=== PATIENT | female | born 1950 | race Caucasian/White ===

== ENCOUNTER 2018-06-27 09:19 | Day surgery (SDC) | payer MEDICARE, OTHER ==
[~2018-06-27 09:19] MED LIST: 0.9 % SODIUM CHLORIDE 10 ML VIAL IVP ONE; CEFAZOLIN 2 Gram 2 GM/50 ML BAG IVPB ONE; CELECOXIB 100 MG CAPSULE PO ONE; FAMOTIDINE 20MG TABLET PO ONE; MECLIZINE 25 MG TABLET PO ONE; METOCLOPRAMIDE 10 MG TABLET PO ONE; TRANEXAMIC ACID 1,000 MG/10 ML ML IV ONE; VANCOMYCIN HCL 1,000 MG in DEXTROSE 5 % IN WATER 250 ML IVPB ONE
[2018-06-27] MEDS ORDERED: TRANEXAMIC ACID 1,000 MG/10 ML ML IV ONE (09:20)
[2018-06-27] MEDS ORDERED: FENTANYL PF 100MCG/2ML VIAL IV ONE (09:20)
[2018-06-27] MEDS ORDERED: DEXAMETHASONE 4 MG/ML 1ML VIAL IVP ONE (09:20)
[2018-06-27] MEDS ORDERED: SEVOFLURANE 250 ML INH ONE (09:20)
[2018-06-27] MEDS ORDERED: MIDAZOLAM HCL 2MG/2ML VIAL IV ONE (09:20)
[2018-06-27] MEDS ORDERED: LIDOCAINE 2% MDV (20MG/ML) 20ML VIAL IV ONE (09:20)
[2018-06-27] MEDS ORDERED: FENTANYL PF 0.25MG/5ML AMPUL IV ONE (09:20)
[2018-06-27] MEDS ORDERED: ROPIVACAINE HCL (NAROPIN) /PF 5MG/ML 20ML VIAL IV ONE (09:20)
[2018-06-27] MEDS ORDERED: GLYCOPYRROLATE 0.2 MG/ML ML IV ONE (09:20)
[2018-06-27] MEDS ORDERED: ONDANSETRON HCL IV 4 MG/2 ML VIAL IVP ONE (09:20)
[2018-06-27] MEDS ORDERED: PROPOFOL 10 MG/ML VIAL IV ONE (09:20)
[2018-06-27] MEDS ORDERED: KETOROLAC 30 MG/ML VIAL IVP ONE (09:20)
[2018-06-27] MEDS ORDERED: EPHEDRINE SULFATE 50 MG/ML ML IV ONE (09:20)
[2018-06-27] MEDS ORDERED: BUPIVACAINE 0.5% W/EPI MPF 30 ML VIAL IVP ONE (09:20)
[2018-06-27 10:22] LABS: ABO GROUP O; ANTIBODY SCREEN NEGATIVE (NEGATIVE); RH TYPE POSITIVE
[2018-06-27] MEDS ORDERED: NALOXONE 0.4 MG/1 ML VIAL IVP PRN (15:21)
[2018-06-27] MEDS ORDERED: HYDROMORPHONE HCL 2 MG/ML VIAL IM PRN (15:21)
[2018-06-27] MEDS ORDERED: KETOROLAC 30 MG/ML VIAL IVP PRN ×2 (15:21)
[2018-06-27] MEDS ORDERED: ACETAMINOPHEN W/ CODEINE 300MG/60MG TABLET PO PRN ×2 (15:21)
[2018-06-27] MEDS ORDERED: ACETAMINOPHEN 325 MG TAB PO PRN (15:21)
[2018-06-27] MEDS ORDERED: ZOLPIDEM TARTRATE 5 MG TABLET PO PRN (15:21)
[2018-06-27] MEDS ORDERED: MAGNESIUM HYDROXIDE 30 ML UDC PO PRN (15:21)
[2018-06-27] MEDS ORDERED: DIPHENHYDRAMINE HCL 25 MG CAPSULE PO PRN (15:21)
[2018-06-27] MEDS ORDERED: AL HYDROX/MAG HYDROX 30ML UD PO PRN (15:21)
[2018-06-27] MEDS ORDERED: HYDROCODONE/APAP 10/325 TABLET PO PRN (15:21)
[2018-06-27] MEDS ORDERED: TRAMADOL HCL 50 MG TABLET PO PRN (15:21)
[2018-06-27] MEDS ORDERED: BISACODYL 10 MG SUPP RC PRN (15:21)
[2018-06-27] MEDS ORDERED: ONDANSETRON HCL IV 4 MG/2 ML VIAL IVP PRN (15:21)
[2018-06-27] MEDS: CEFAZOLIN 1 Gram 2 GM/100 ML BAG IVPB SCH (21:04)
[2018-06-27] MEDS: METOPROLOL TART 50 MG TABLET PO SCH (21:09)
[2018-06-27] MEDS: DOCUSATE SODIUM 100 MG CAPSULE PO SCH (21:10)
[2018-06-27] MEDS: HYDROCODONE/APAP 10/325 TABLET PO PRN (21:10)
[2018-06-27] MEDS ORDERED: SIMVASTATIN 20 MG TABLET PO SCH (22:00)
[2018-06-28] MEDS: POTASSIUM CHLORIDE/D5-0.9%NACL 20 MEQ/1,000 ML BAG IV SCH ×3 (00:52→13:25)
[2018-06-28] MEDS: CEFAZOLIN 1 Gram 2 GM/100 ML BAG IVPB SCH ×2 (03:59→11:36)
[2018-06-28] MEDS: HYDROCODONE/APAP 10/325 TABLET PO PRN ×3 (06:32→14:11)
[2018-06-28 06:58] LABS: HEMOGLOBIN 12.8 gm/dl (11.6-16.0)
[2018-06-28] MEDS ORDERED: PANTOPRAZOLE SODIUM 40 MG TABLET PO SCH (07:00)
[2018-06-28 07:13] LABS: BLOOD UREA NITROGEN 8 mg/dL (8-23); CREATININE 0.7 mg/dL (0.5-0.9); EST GLOMERULAR FILTRATION RATE > 60 mL/min; GLUCOSE,RANDOM 149 mg/dL (74-109)
[2018-06-28] MEDS: DOCUSATE SODIUM 100 MG CAPSULE PO SCH (09:27)
[2018-06-28] MEDS: METOPROLOL TART 50 MG TABLET PO SCH (09:28)
[2018-06-28] MEDS ORDERED: FERROUS SULFATE 325 MG TAB PO SCH (10:00)
[2018-06-28] MEDS ORDERED: MULTIVITAMINS/MINERALS TABLET PO SCH (10:00)
[2018-06-28] MEDS ORDERED: CITALOPRAM 20 MG TABLET PO SCH ×2 (10:00)
[2018-06-28] MEDS ORDERED: RIVAROXABAN 10 MG TABLET PO SCH (10:00)
[2018-06-28] MEDS ORDERED: ASPIRIN 81 MG CHEWABLE TABLET PO SCH (10:00)
[2018-06-28] MEDS ORDERED: METOPROLOL TART 50 MG TABLET PO SCH (10:00)
--- NOTE | 2018-06-28 10:45 | Rehab Evaluation ---
Patient Information - Patient Information Diagnosis: DJD right knee Ordered Treatment: OT Evaluate and Treat Status: Initial Evaluation Surgery: Yes (right total knee arthroplasty) Date of Surgery: 06/27/18 Past Medical/Surgical Hx: PAST MEDICAL/SURGICAL HISTORY Past Surgical History tubal ligation right foot sx PMH - Respiratory Hx Respiratory Disorders No PMH - Cardiovascular Hx Cardiovascular Disorders Yes Hx Hypertension Yes: on meds good control Exercise Tolerance Good PMH - Neuro Hx Neurological Disorders No PMH - GI Hx Gastrointestinal Disorders Yes Hx Gastroesophageal Reflux Yes: on meds good control PMH - Hx Genitourinary Disorders No PMH - Endocrine Hx Endocrine Disorders No PMH - Musculoskeletal Hx Musculoskeletal Disorders Yes Hx Arthritis Yes: right knee and shoulders PMH - Psych Hx Psychiatric Problems Yes Hx Anxiety Yes PMH - Hematology/Oncology Hx Hematology/Oncology No Disorders Premorbid Status: Detail (Pt lives alone in a 1st floor apartment, no steps at the entrance. She has a walk in shower with grab bars, hand held shower and bench as well as an elevated toilet. She is Ind with all home mgmt, meal prep and laundry. 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.) Precautions: [place], Fall, Other (WBAT right LE) - Time With Patient Total Time Spent With Patient (Min): 40 Treatment Procedures: Detail (OT eval low complexity) Subjective Information - Subjective Information Per Patient Objective Data - Pain Pain Present: No (Pt reports no pain currently.) - Mental Status Patient Orientation: Oriented x3 - Visual Perception Appears within normal limits for therapeutic activities - ROM Within normal limits (Jarad UE AROM WNL) - Strength/Tone Within normal limits (Jarad UE strength WNL) - Coordination Appears within normal limits for therapeutic activities - Bed Mobility Independent (Ind with supine to sit.) - Transfers Independent (Ind with sit to stand from EOB.) - Balance Balance Sitting: Good Balance Standing: Good - Sensation Intact - Gait Detail (Pt ambulating in room with 2 wheeled walker Indly.) - ADL's/IADL's Detail (Pt educated and demonstrated learning of modified LE dressing techniques including doffing briefs, slipper socks and donning underwear, pants and tennis shoes. Reviewed kitchen, bathroom and laundry modifications, pt verbalized understanding.) Therapy Assessment - Therapy Assessment Detail (Pt demonstrates Ind with modified LE dressing techniques.) Problem List - Problem List Occupational Therapy Problem List: Detail (No current OT problems identified.) Goals - Goals Occupational Therapy Goals: No current IP OT goals identified. Prognosis - Prognosis Good Plan - Plan Occupational Therapy Plan: No further IP OT recommended. Thank you for this referral.
--- NOTE | 2018-06-28 11:24 | Rehab Evaluation ---
Patient Information - Patient Information Diagnosis: DJD right knee Ordered Treatment: PT Evaluate and Treat Status: Initial Evaluation Surgery: Yes (right total knee arthroplasty) Date of Surgery: 06/27/18 Past Medical/Surgical Hx: PAST MEDICAL/SURGICAL HISTORY Past Surgical History tubal ligation right foot sx PMH - Respiratory Hx Respiratory Disorders No PMH - Cardiovascular Hx Cardiovascular Disorders Yes Hx Hypertension Yes: on meds good control Exercise Tolerance Good PMH - Neuro Hx Neurological Disorders No PMH - GI Hx Gastrointestinal Disorders Yes Hx Gastroesophageal Reflux Yes: on meds good control PMH - Hx Genitourinary Disorders No PMH - Endocrine Hx Endocrine Disorders No PMH - Musculoskeletal Hx Musculoskeletal Disorders Yes Hx Arthritis Yes: right knee and shoulders PMH - Psych Hx Psychiatric Problems Yes Hx Anxiety Yes PMH - Hematology/Oncology Hx Hematology/Oncology No Disorders Premorbid Status: Detail (Pt lives alone in a 1st floor apartment, no steps at the entrance. She has a walk in shower with grab bars, hand held shower and bench as well as an elevated toilet. She is Ind with all home mgmt, meal prep and laundry. 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 AROM approx. 0-90.) - Strength/Tone Not within normal limits (RLE strength limited due to status post-surgery. Functional strength to ambulate and perform exercises.) - Bed Mobility Independent - Transfers Independent - Balance Balance Sitting: Good Balance Standing: Good - Sensation Intact - Gait Detail (Patient ambulated approx. 300' using a standard walker and supervision for safety. Patient ambulated a flight of 3 stairs with a folded walker and hand rail. WBAT on the RLE.) Therapy Assessment - Therapy Assessment Detail (Patient is IND with all mobility.) Patient Education - Patient Education Teaching Topic: Exercise/Activity (Patient was education on ankle pumps, heel slides, glut sets, quad sets, hamstring sets, and straight leg raises.) Teaching Method: Demonstration, Handout Teaching Recipient: Patient Barriers To Learning: Age Related Problem List - Problem List Physical Therapy Problem List: Detail (1) Decreased RLE strength 2) Decreased RLE ROM) Occupational Therapy Problem List: Detail (No current OT problems identified.) Goals - Goals Physical Therapy Goals: Patient has met all IP PT goals. Occupational Therapy Goals: No current IP OT goals identified. Prognosis - Prognosis Good Plan - Plan Physical Therapy Plan: No further IP PT is needed. Patient will receive home health PT. Occupational Therapy Plan: No further IP OT recommended. Thank you for this referral.
--- NOTE | 2018-06-28 16:05 | Physical Therapy Tx Note ---
Physical Therapy Tx Note - Treatment Note Total Time Spent With Patient: 15 Physical Therapy Tx Note: Detail (The patient was seen this pm for car transfer into her vehicle. The patient completed transfer with supervision for safety only. The patient's son was instructed in proper positioning of seat and possibile assistance needed to lift LE.) Physical Therapy Problem List: Detail (1) Decreased RLE strength 2) Decreased RLE ROM) Physical Therapy Goals: Patient has met all IP PT goals. Physical Therapy Plan: No further IP PT is needed. Patient will receive home health PT.
--- NOTE | 2018-06-28 21:43 | Operative Note ---
DATE: 06/27/2018 PREOPERATIVE DIAGNOSIS: END-STAGE ARTHROSIS OF THE RIGHT KNEE. POSTOPERATIVE DIAGNOSIS: END-STAGE ARTHROSIS OF THE RIGHT KNEE. PROCEDURE: Cemented right total knee arthroplasty using [employer] Alison II components, with a size 4 Oxinium femur, size 4 stemmed tibial baseplate, a 9 mm lipped highly cross-linked tibial insert, and a 32 mm all-plastic patella. STAFF SURGEON: MARLEN NOLASCO M.D. ANESTHESIA: GENERAL. PREPARATION: CHLORAPREP. INDIVIDUAL CONSIDERATIONS: NONE. PROCEDURE: The patient was taken to the Operating Room and placed supine on the operating table. She had the successful induction with general anesthetic. Her right leg was then prepped and draped in the usual fashion. The patient had a midline approach to the knee. The limb was elevated and the tourniquet was inflated to 215 mmHg. Sharp dissection carried down through the skin and subcutaneous tissue. Small veins were coagulated with a Bovie. A medial arthrotomy was performed. The patella was everted and the knee was flexed. He had exposed bone medially. The fat pad was resected, the ACL was sacrificed, provisional anterior meniscectomies were performed, and the capsule was released from the medial proximal tibia. The initial femoral remotely piloted vehicle controller hole was then made freehand. The intramedullary femoral cutting jig was placed. It was cut in 7.0 degrees of valgus and adjusted for rotation and secured with pins for a 10 mm resection. The initial transverse cut was then made. The skin guide was placed for the anterior and posterior remotely piloted vehicle controller holes. It was found that a size 4 would be appropriate but I needed to translate it anterior 2 mm using the guide. The anterior and posterior cuts followed by chamfer cuts were made, osteophytes were removed, and a size 4 trial was placed and found to fit well. The tibia was brought forward and the remainder of the meniscal remnants were removed with a Bovie. The extraarticular tibial cutting jig was placed. It was cut in neutral with a 3 degree AP slope. It was set for a 9 mm resection, keyed off the high lateral side, and secured with pins. When cutting the tibia, care was taken to preserve the PCL insertion on the tibia. After removing osteophytes , I was able to fit a size 4. It was adjusted for rotation and secured with pins. With a 9 mm trial and the femoral trial, there was excellent motion and stability. Ligamentous balance, rotation, and alignment were thought to be normal. The femoral remotely piloted vehicle controller holes were then impacted and the tibial keel was impacted and then these trial components were removed. The patient had a sufficiently thick patella for a 32 patella and 9 mm of bone was removed freehand and the three remotely piloted vehicle controller holes were then drilled. The tourniquet was let down briefly to get bleeders posteriorly and then placed back up again. The knee was then thoroughly irrigated out with pulsatile Betadine and saline to remove any visual or palpable debris. Bony surfaces were then dried. A size 4 baseplate was cemented into place, followed by impaction of the 9 mm lipped highly cross-linked tibial insert, followed by cementing in the size 4 Oxinium femur, followed by cementing in the 32 mm patella. Implant surfaces were compressed, excess cement was removed, and then after the cement had set, there was excellent motion and stability. Ligamentous balance, rotation and alignment and patellofemoral tracking were normal. No lateral release was required. The tourniquet was let down and hemostasis was obtained with a Bovie. The skin and periosteum were infiltrated with 30 mL of 0.5% Marcaine with Epinephrine. The capsule was then closed after irrigation with a running #2 Quill. The subcu was closed in layers with running 0 Quill, and the skin was closed with paula. 30 mL of saline was mixed with a gram of Tranexamic Acid. This was injected into the knee and a sterile Bulkee compressive LANI-type dressing was applied. The patient tolerated the procedure well. Needle and sponge counts were correct. Estimated blood loss was minimal and she was taken back to recovery in good condition. There were no complications. JOB NUMBER: [id number] [facility]
--- NOTE | 2018-06-28 21:59 | Operative Note ---
DATE OF ADMISSION: 06/27/2018 DATE OF DISCHARGE: 06/28/2018 DATE OF SURGERY: 06/27/2018 HISTORY: Aurea is a delightful 67-year-old female who presents with end-stage arthrosis of her knee. She was admitted after total knee arthroplasty. Postoperatively, she did great. Her hospital course was unremarkable. She is independent basically the first postoperative day. DISCHARGE INSTRUCTIONS: The plan is to discharge her to home in the care of her family. Home PT and Visiting Nurse has been arranged. She will be given Xarelto followed by Aspirin for DVT prophylaxis. She will be given [place] for pain. The Visiting Nurse will remove her sutures in two weeks. She will follow- up in my office in four weeks. FINAL DIAGNOSIS/PRIMARY DIAGNOSIS: END-STAGE ARTHROSIS OF HER KNEE. OPERATIONS AND PROCEDURES: CEMENTED TOTAL KNEE ARTHROPLASTY. DISCHARGE CONDITION: GOOD. JOB NUMBER: [id number] [facility]TD[facility]
[2018-06-28] MEDS ORDERED: SIMVASTATIN 20 MG TABLET PO SCH (22:00)
[2018-06-29] MEDS ORDERED: PANTOPRAZOLE SODIUM 40 MG TABLET PO SCH (07:00)
[2018-07-04] MEDS ORDERED: MULTIVITAMINS/MINERALS TABLET PO SCH (10:00)
[2018-07-04] MEDS ORDERED: ASPIRIN 81 MG CHEWABLE TABLET PO SCH (10:00)
== END 2018-06-28 14:40 | disposition home health service (06) ==
LOC: SUR 09:19 → MEDSURG 16:05 → SUR 06-28 14:40
PROVIDERS: ATTEND Orthopaedic Surgery
DX: M17.11 Unilateral primary osteoarthritis, right knee (principal); I10 Essential (primary) hypertension; E78.00 Pure hypercholesterolemia, unspecified; K21.9 Gastro-esophageal reflux disease without esophagitis
CPT/HCPCS: 27447; 01402; 85018; 85014; 80048; 86900; 86901; 86850; J1885; J2405; J3370; J3010; J0690 ×3; J3490 ×3; J2795; G8978; G8979; G8980; G8987; G8988; G8989; J3480; J7060